=== PATIENT | male | born 1985 | race Caucasian/White ===

== ENCOUNTER 2017-03-31 19:00 | Emergency (ER) | payer BC ==
[~2017-03-31] VITALS: Ht 180.3 cm; Wt 59.0 kg
--- NOTE | ~2017-03-31 | EKG ---
[place], [place] ELECTROCARDIOGRAM REPORT NAME: MARYA HURT UNIT #: [id number] ROOM: DOCTOR: RENE TOURE MD BIRTHDATE: [birth year] DOS: 03/31/2017 TIME: 1930 RATE AND RHYTHM: Sinus rhythm at 68 beats per minute. MO interval 132 milliseconds, QRS duration 90 milliseconds, corrected QT interval 397 milliseconds, QRS axis -77. IMPRESSION: 1. Normal sinus rhythm. 2. Left axis deviation, otherwise normal EKG. RENE TOURE MD CM:EKGRPT:ELECTROCARDIOGRAM REPORT [id number] RENE TOURE MD
--- NOTE | ~2017-03-31 | EKG ---
[place], [place] ELECTROCARDIOGRAM REPORT NAME: MARYA HURT UNIT #: [id number] ROOM: DOCTOR: RENE TOURE MD BIRTHDATE: [birth year] DOS: 03/31/2017 TIME: 19:30:53. RATE AND RHYTHM: Normal sinus rhythm at 68 beats per minute. CA interval 132 milliseconds, QRS duration is 90 milliseconds, QT interval 373 milliseconds, corrected QT interval 397 milliseconds and axis is -7. IMPRESSION: 1. Normal sinus rhythm. 2. Left axis deviation, ____ otherwise normal EKG. RENE TOURE MD CM:EKGRPT:ELECTROCARDIOGRAM REPORT [id number] RENE TOURE MD
[~2017-03-31 19:00] MED LIST: CIPRO500 MG PO; FLAGYL500 MG PO; LEVOFLOXACIN500 MG PO; Motrin,Rufen800 MG PO; PROTONIX40 MG PO
[2017-03-31] MEDS ORDERED: ZANTAC 150150 MG PO (19:12)
[2017-03-31] MEDS ORDERED: ATIVAN0.5 MG PO (19:13)
[2017-03-31 19:26] LABS: BASO % 0.5 % (0.0-1.0); HEMOGLOBIN 15.8 g/dl (14.0-18.0); LYMPH # 2.4 10*3/uL (1.3-4.4); LYMPH % 31.4 % (27.0-41.0); MEAN CELL VOLUME 86.1 fl (80.0-94.0); MEAN CORPUSCULAR HGB 29.6 pg (27.0-31.0); MEAN CORPUSCULAR HGB CONC 34.3 g/dl (33.0-37.0); MEAN PLATELET VOLUME 10.6 fl (9.6-12.3); MONO # 0.5 10*3/uL (0.1-1.0); MONO % 5.9 % (3.0-9.0); NEUT # 4.7 10*3/uL (2.3-7.9); NEUT % 61.9 % (47.0-73.0); PLATELET COUNT AUTOMATED 181 10*3/uL (130-400); RED BLOOD COUNT 5.34 10*6/uL (4.50-5.90); RED CELL DISTRI WIDTH 12.2 % (0-14.5); WHITE BLOOD COUNT 7.6 10*3/uL (4.8-10.8)
[2017-03-31 19:43] LABS: ALBUMIN 3.9 gm/dl (3.1-4.5); ALKALINE PHOSPHATASE 65 U/L (45-117); BILIRUBIN, TOTAL 0.8 mg/dl (0.2-1.0); BUN 7 mg/dl (7-24); CARBON DIOXIDE 23 mmol/L (21-32); CHLORIDE 109 mmol/L (98-107); CPK 115 U/L (39-308); EST GLOM FILT AFRICAN AMERICAN > 60 ml/min; GLUCOSE 99 mg/dL (65-99); LDH 242 U/L (87-241); MAGNESIUM 2.3 mg/dL (1.5-2.1); POTASSIUM 4.2 mmol/L (3.5-5.1); SGOT/AST 23 IU/L (3-35); SGPT/ALT 18 U/L (12-78); SODIUM 146 mmol/L (136-145); TOTAL PROTEIN 7.5 gm/dL (6.4-8.2)
[2017-03-31 19:44] LABS: CKMB 0.8 ng/ml (0.5-3.6)
[2017-03-31 19:45] LABS: TROPONIN I < 0.015 ng/ml (<0.045)
[2017-03-31 20:03] LABS: URINE AMPHETAMINES < 1000 (1000ng/ml); URINE BARBITURATES < 200 (200ng/ml); URINE COCAINE < 300 (300ng/ml)
== END 2017-03-31 21:12 | disposition home or self-care (01) ==
LOC: ED 19:00
PROVIDERS: Physician Assistant
DX: F41.9 Anxiety disorder, unspecified (principal); R07.9 Chest pain, unspecified; R06.02 Shortness of breath; R20.2 Paresthesia of skin; R06.4 Hyperventilation

== ENCOUNTER 2017-07-25 12:44 | Emergency (ER) | payer BC ==
[~2017-07-25 12:44] MED LIST changes: +ATIVAN0.5 MG PO; +ZANTAC 150150 MG PO
[2017-07-25 13:03] LABS: BASO # 0.1 10*3/uL (0.0-0.1); BASO % 0.7 % (0.0-1.0); EOS % 0.1 % (1.0-4.0); HEMATOCRIT 48.1 % (42.0-52.0); HEMOGLOBIN 15.9 g/dl (14.0-18.0); LYMPH % 28.7 % (27.0-41.0); MEAN CELL VOLUME 89.2 fl (80.0-94.0); MEAN CORPUSCULAR HGB 29.5 pg (27.0-31.0); MEAN CORPUSCULAR HGB CONC 33.1 g/dl (33.0-37.0); MEAN PLATELET VOLUME 9.9 fl (9.6-12.3); MONO # 0.5 10*3/uL (0.1-1.0); MONO % 7.5 % (3.0-9.0); NEUT # 4.4 10*3/uL (2.3-7.9); NEUT % 62.7 % (47.0-73.0); PLATELET COUNT AUTOMATED 230 10*3/uL (130-400); RED BLOOD COUNT 5.39 10*6/uL (4.50-5.90); RED CELL DISTRI WIDTH 13.7 % (0-14.5)
[2017-07-25 13:12] LABS: ACT PARTIAL THROMBO TIME 26.5 SECONDS (20.8-31.5)
[2017-07-25 13:19] LABS: ALBUMIN 3.9 gm/dl (3.1-4.5); ALKALINE PHOSPHATASE 69 U/L (45-117); BUN 11 mg/dl (7-24); CHLORIDE 105 mmol/L (98-107); CREATININE 1.09 mg/dL (0.70-1.30); LIPASE 238 U/L (73-393); MAGNESIUM 2.5 mg/dL (1.5-2.1); POTASSIUM 3.8 mmol/L (3.5-5.1); SGOT/AST 58 IU/L (3-35); SGPT/ALT 63 U/L (12-78); SODIUM 141 mmol/L (136-145); TOTAL PROTEIN 7.6 gm/dL (6.4-8.2)
[2017-07-25 13:29] LABS: TROPONIN I < 0.015 ng/ml (<0.045)
[2017-07-25] MEDS ORDERED: CELEXA20 MG PO (14:51)
== END 2017-07-25 16:56 | disposition home or self-care (01) ==
LOC: ED 12:44
PROVIDERS: Emergency Medicine
DX: R07.89 Other chest pain (principal); F41.9 Anxiety disorder, unspecified; F17.200 Nicotine dependence, unspecified, uncomplicated; F32.9 Major depressive disorder, single episode, unspecified

== ENCOUNTER 2018-02-27 22:27 | Emergency (ER) | payer SELFPAY ==
[~2018-02-27] VITALS: Ht 154.9 cm; Wt 59.0 kg
[~2018-02-27 22:27] MED LIST changes: +CELEXA20 MG PO
== END 2018-02-28 00:27 | disposition home or self-care (01) ==
LOC: ED 22:27
DX: R51 Headache (principal); Z79.899 Other long term (current) drug therapy

== ENCOUNTER 2018-11-30 | Emergency (ER) | payer BC ==
[2018-11-30 23:37] LABS: BASO % 0.3 % (0.0-1.0); HEMATOCRIT 45.3 % (42.0-52.0); HEMOGLOBIN 15.6 g/dl (14.0-18.0); LYMPH # 0.6 10*3/uL (1.3-4.4); LYMPH % 9.9 % (27.0-41.0); MEAN CELL VOLUME 86.5 fl (80.0-94.0); MEAN CORPUSCULAR HGB 29.8 pg (27.0-31.0); MEAN CORPUSCULAR HGB CONC 34.4 g/dl (33.0-37.0); MONO # 0.5 10*3/uL (0.1-1.0); MONO % 7.3 % (3.0-9.0); NEUT # 5.1 10*3/uL (2.3-7.9); NEUT % 82.2 % (47.0-73.0); PLATELET COUNT AUTOMATED 154 10*3/uL (130-400); RED BLOOD COUNT 5.24 10*6/uL (4.50-5.90); RED CELL DISTRI WIDTH 12.6 % (0-14.5); WHITE BLOOD COUNT 6.3 10*3/uL (4.8-10.8)
[2018-11-30 23:52] LABS: ALBUMIN 3.6 gm/dl (3.1-4.5); ALKALINE PHOSPHATASE 47 U/L (45-117); BUN 13 mg/dl (7-24); CHLORIDE 103 mmol/L (98-107); LIPASE 80 U/L (73-393); POTASSIUM 3.8 mmol/L (3.5-5.1); SGOT/AST 20 IU/L (3-35); SGPT/ALT 18 U/L (12-78); SODIUM 138 mmol/L (136-145); TOTAL PROTEIN 7.1 gm/dL (6.4-8.2)
[2018-12-01] MEDS ORDERED: ZOFRAN4 MG PO (00:14)
== END 2018-12-01 00:29 | disposition home or self-care (01) ==
PROVIDERS: Physician Assistant
DX: K52.9 Noninfective gastroenteritis and colitis, unspecified (principal); F17.200 Nicotine dependence, unspecified, uncomplicated

== ENCOUNTER 2019-11-30 04:38 | Emergency (ER) | payer BC ==
[~2019-11-30] VITALS: Ht 180.3 cm; Wt 59.0 kg
[~2019-11-30 04:38] MED LIST changes: +ZOFRAN4 MG PO
[2019-11-30 05:18] LABS: HEMATOCRIT 44.7 % (42.0-52.0); HEMOGLOBIN 15.2 g/dl (14.0-18.0); MEAN CORPUSCULAR HGB 30.3 pg (27.0-31.0); MEAN PLATELET VOLUME 9.9 fl (9.6-12.3); PLATELET COUNT AUTOMATED 185 10*3/uL (130-400); RED BLOOD COUNT 5.02 10*6/uL (4.50-5.90); RED CELL DISTRI WIDTH 12.4 % (0-14.5)
[2019-11-30 05:31] LABS: INTERNATIONAL NORM RATIO 0.9 (2.0-3.5)
[2019-11-30 05:34] LABS: ALBUMIN 3.8 gm/dl (3.1-4.5); ALKALINE PHOSPHATASE 67 U/L (45-117); BUN 13 mg/dl (7-24); CHLORIDE 109 mmol/L (98-107); CREATININE 0.93 mg/dL (0.70-1.30); POTASSIUM 3.8 mmol/L (3.5-5.1); SGOT/AST 14 IU/L (3-35); SGPT/ALT 23 U/L (12-78); SODIUM 142 mmol/L (136-145)
[2019-11-30 05:46] LABS: ATYPICAL LYMPHS 1 % (0-0); TOTAL CELLS COUNTED 100 #CELLS
[2019-11-30 05:47] LABS: PLATELET SUFFICIENCY NORMAL (NORMAL); TROPONIN I < 0.015 ng/ml (<0.045)
== END 2019-11-30 06:31 | disposition home or self-care (01) ==
LOC: ED 04:38
PROVIDERS: Emergency Medicine
DX: R06.02 Shortness of breath (principal); F17.200 Nicotine dependence, unspecified, uncomplicated

== ENCOUNTER 2020-08-04 05:31 | Emergency (ER) | payer BC ==
[~2020-08-04] VITALS: Ht 180.3 cm; Wt 59.0 kg
== END 2020-08-04 06:21 | disposition home or self-care (01) ==
LOC: ED 05:31
DX: S66.911A Strain of unspecified muscle, fascia and tendon at wrist and hand level, right hand, initial encounter (principal); X50.1XXA Overexertion from prolonged static or awkward postures, initial encounter; Y93.89 Activity, other specified; Y92.89 Other specified places as the place of occurrence of the external cause; Y99.8 Other external cause status

== ENCOUNTER → 2020-10-10 | Outpatient (CLI) | payer BC | END | disposition home or self-care (01) | LOC: COVID19 16:05 | PROVIDERS: ATTEND Family Medicine | DX: Z20.828 Contact with and (suspected) exposure to other viral communicable diseases (principal) ==

== ENCOUNTER 2021-04-16 23:36 | Emergency (ER) | payer BC ==
[~2021-04-16] VITALS: Wt 59.0 kg
[2021-04-17 00:40] LABS: BASO # 0.1 10*3/uL (0.0-0.1); BASO % 0.7 % (0.0-1.0); EOS % 0.2 % (1.0-4.0); HEMATOCRIT 43.9 % (42.0-52.0); LYMPH # 3.4 10*3/uL (1.3-4.4); LYMPH % 34.7 % (27.0-41.0); MEAN CELL VOLUME 83.1 fl (80.0-94.0); MEAN CORPUSCULAR HGB 29.5 pg (27.0-31.0); MEAN CORPUSCULAR HGB CONC 35.5 g/dl (33.0-37.0); MONO # 0.9 10*3/uL (0.1-1.0); NEUT # 5.3 10*3/uL (2.3-7.9); NEUT % 55.2 % (47.0-73.0); PLATELET COUNT AUTOMATED 211 10*3/uL (130-400); RED BLOOD COUNT 5.28 10*6/uL (4.50-5.90); WHITE BLOOD COUNT 9.7 10*3/uL (4.8-10.8)
[2021-04-17 00:55] LABS: ALBUMIN 4.5 gm/dl (3.1-4.5); ALKALINE PHOSPHATASE 58 U/L (45-117); BUN 13 mg/dl (7-24); CHLORIDE 106 mmol/L (98-107); CREATININE 1.13 mg/dL (0.70-1.30); POTASSIUM 3.3 mmol/L (3.5-5.1); SGOT/AST 20 IU/L (3-35); SGPT/ALT 21 U/L (12-78); SODIUM 138 mmol/L (136-145); TOTAL PROTEIN 7.9 gm/dL (6.4-8.2)
[2021-04-17 03:06] LABS: BILIRUBIN Negative (Negative); BLOOD Negative (Negative); CLARITY Clear (Clear); COLOR Yellow (Yellow); GLUCOSE Negative (Negative); KETONE 2+ (Negative); LEUKO ESTERASE Negative (Negative); NITRITE Negative (Negative); SPECIFIC GRAVITY >= 1.030 (1.001-1.030)
[2021-04-17 03:15] LABS: RBC 0-2 rbc/hpf (0-2); WBC 0-2 wbc/hpf (0-5)
== END 2021-04-17 05:51 | disposition home or self-care (01) ==
LOC: ED 23:36
PROVIDERS: Emergency Medicine
DX: E80.6 Other disorders of bilirubin metabolism (principal); Z79.899 Other long term (current) drug therapy

== ENCOUNTER → 2021-07-26 | Outpatient (CLI) | payer OTHER, BC | END | disposition home or self-care (01) | LOC: RAD 12:06 | PROVIDERS: ATTEND Family Medicine | DX: M54.2 Cervicalgia (principal); M54.6 Pain in thoracic spine ==

== ENCOUNTER → 2021-08-18 | Outpatient (CLI) | payer OTHER | END | disposition home or self-care (01) | LOC: MRI 08:53 | PROVIDERS: ATTEND Family Medicine | DX: S13.4XXA Sprain of ligaments of cervical spine, initial encounter (principal); S23.3XXA Sprain of ligaments of thoracic spine, initial encounter; X58.XXXA Exposure to other specified factors, initial encounter; Y93.89 Activity, other specified; Y92.89 Other specified places as the place of occurrence of the external cause; Y99.8 Other external cause status ==

== ENCOUNTER → 2021-11-22 | Outpatient (CLI) | payer BC | END | disposition home or self-care (01) | LOC: COVID19 17:02 | PROVIDERS: ATTEND Student in an Organized Health Care Education/Training Program | DX: U07.1 COVID-19 (principal) ==

== ENCOUNTER → 2022-02-12 | Outpatient (CLI) | payer BC | END | disposition home or self-care (01) | LOC: RAD 14:48 | PROVIDERS: ATTEND Internal Medicine | DX: M54.50 Low back pain, unspecified (principal) ==

== ENCOUNTER → 2022-02-27 | Outpatient (CLI) | payer BC | END | disposition home or self-care (01) | LOC: LAB 16:09 | PROVIDERS: ATTEND Internal Medicine | DX: J44.9 Chronic obstructive pulmonary disease, unspecified (principal) ==

== ENCOUNTER → 2022-04-03 | Outpatient (CLI) | payer BC | END | disposition home or self-care (01) | LOC: CT 12:59 | PROVIDERS: ATTEND Internal Medicine | DX: J44.9 Chronic obstructive pulmonary disease, unspecified (principal); J98.4 Other disorders of lung ==

== ENCOUNTER → 2023-03-05 | Outpatient (CLI) | payer OTHER | END | disposition home or self-care (01) | LOC: US 02:06 | PROVIDERS: ATTEND Internal Medicine | DX: J43.9 Emphysema, unspecified (principal); R06.02 Shortness of breath; R16.1 Splenomegaly, not elsewhere classified ==

== ENCOUNTER → 2025-01-14 | Outpatient (CLI) | payer OTHER ==
[2025-01-14 09:18] LABS: BASO # 0.1 10*3/uL (0.0-0.1); BASO % 0.7 % (0.0-1.0); EOS # 0.1 10*3/uL (0.0-0.4); EOS % 0.8 % (1.0-4.0); HEMATOCRIT 47.2 % (42.0-52.0); MEAN CELL VOLUME 87.2 fl (80.0-94.0); MEAN CORPUSCULAR HGB 28.7 pg (27.0-31.0); MEAN CORPUSCULAR HGB CONC 32.8 g/dl (33.0-37.0); MEAN PLATELET VOLUME 10.1 fl (9.6-12.3); MONO # 0.6 10*3/uL (0.1-1.0); MONO % 7.6 % (3.0-9.0); NEUT # 3.4 10*3/uL (2.3-7.9); NEUT % 45.4 % (47.0-73.0); PLATELET COUNT AUTOMATED 228 10*3/uL (130-400); RED BLOOD COUNT 5.41 10*6/uL (4.50-5.90); RED CELL DISTRI WIDTH 12.7 % (0-14.5); WHITE BLOOD COUNT 7.4 10*3/uL (4.8-10.8)
[2025-01-14 09:58] LABS: ALKALINE PHOSPHATASE 68 U/L (46-116); BUN 10 mg/dl (9-23); CHLORIDE 105 mmol/L (98-107); CHOLESTEROL 156 mg/dL (<200); FREE T4 1.21 ng/dl (0.89-1.76); LDL CHOLESTEROL 79 mg/dL (9-159); SGPT/ALT 10 U/L (5-49); TOTAL PROTEIN 7.3 gm/dL (6.0-8.0); TRIGLYCERIDES 121 mg/dl (<150)
== END | disposition home or self-care (01) ==
LOC: LAB 08:46
PROVIDERS: ATTEND Internal Medicine
DX: F51.01 Primary insomnia (principal); Z82.49 Family history of ischemic heart disease and other diseases of the circulatory system

== ENCOUNTER 2025-09-10 20:02 | Emergency (ER) | payer OTHER ==
[~2025-09-10] VITALS: Wt 65.8 kg
[2025-09-10] MEDS ORDERED: Dexamethasone Sodium Phospha 20 MG/5 ML VIAL IM ONE (20:25)
[2025-09-10] MEDS ORDERED: METHOCARBAMOL 750 MG TAB PO ONE (20:25)
[2025-09-10] MEDS ORDERED: METHOCARBAMOL750 M1 PO (20:27)
[2025-09-10] MEDS ORDERED: PREDNISONE20 M1 PO (20:27)
[2025-09-10] MEDS ORDERED: NAPROSYN500 MG PO (20:27)
== END 2025-09-10 20:50 | disposition home or self-care (01) ==
LOC: ED 20:02
DX: M77.12 Lateral epicondylitis, left elbow (principal); F32.A Depression, unspecified